=== PATIENT | male | born 1955 | race Caucasian/White ===

== ENCOUNTER → 2021-12-15 | Outpatient (CLI) | payer MEDICARE ==
[~2021-12-15] VITALS: Ht 182.9 cm; Wt 104.3 kg
== END ==
LOC: EROP 11:57
DX: U07.1 COVID-19 (principal); Z23 Encounter for immunization; I51.9 Heart disease, unspecified; I10 Essential (primary) hypertension
CPT/HCPCS: M0247; Q0247